=== PATIENT | female | born 1980 | race American Indian/Alaskan Native ===

== ENCOUNTER 2021-04-20 08:56 | Emergency (ER) | payer MEDICAID ==
[2021-04-20] MEDS ORDERED: NITROGLYCERIN 2% OINT 1 GM TP ONE (09:52)
[2021-04-20] MEDS ORDERED: ASPIRIN 325 MG TAB PO ONE (09:52)
--- NOTE | 2021-04-20 09:59 | Emergency Department Report ---
HPI - General Chief Complaint: Chest Pain Time Seen by Provider: 04/20/21 09:40 - HPI HPI: MSE 6 The patient is a 40-year-old female present with a chief complaint of chest pain. The patient states she developed substernal chest and mid back pressure a t 02: 00 this morning. Patient states there was associated shortness of breath but she denies nausea/vomiting or diaphoresis with the pain. Patient describes a pressure is constant in nature. Patient denies history of cough or fever. Patient states she is never had a stress test or cardiac catheterization. Patient currently gives her chest pressure score of 5/10 ED Past Medical Hx - Past Medical History Hx Asthma: Yes Additional medical history: Multiple sclerosis - Surgical History Past Surgical History?: No - Family History Family history: no significant - Social History Smoking Status: Never Smoker Substance Use Type: None (Denies illicit drug use), Alcohol (Occasional) - Medications Home Medications: Home Medications Medication Instructions Recorded Confirmed Last Taken Type Famotidine [Pepcid] 20 mg PO BID #30 tablet 04/20/21 Unknown Rx traMADoL [Ultram] 50 mg PO Q6HR PRN #14 tablet 04/20/21 Unknown Rx ED Review of Systems ROS: Stated complaint: CHEST/BACK PAIN Other details as noted in HPI Constitutional: denies: diaphoresis, fever Eyes: denies: eye pain ENT: denies: throat pain Respiratory: shortness of breath. denies: cough Cardiovascular: chest pain Endocrine: no symptoms reported Gastrointestinal: denies: nausea, vomiting Genitourinary: denies: dysuria Musculoskeletal: back pain Neurological: denies: headache Physical Exam - Physical Exam Vital Signs: Vital Signs 04/20/21 09:16 Temperature 98.4 F Pulse Rate 72 Respiratory 18 Rate Blood Pressure 138/93 [Right] O2 Sat by Pulse 97 Oximetry Physical Exam: GENERAL: The patient is well-developed well-nourished female sitting in chair not appearing to be in acute distress. [] HEENT: Normocephalic. Atraumatic. Extraocular motions are intact. Patient has moist mucous membranes. NECK: Supple. Trachea midline CHEST/LUNGS: Clear to auscultation. There is no respiratory distress noted. HEART/CARDIOVASCULAR: Regular. There is no tachycardia. There is no gallop rub or murmur. ABDOMEN: Abdomen is soft, nontender. Patient has normal bowel sounds. There is no abdominal distention. SKIN: There is no rash. There is no edema. There is no diaphoresis. NEURO: The patient is awake, alert, and oriented. The patient is cooperative. The patient has no focal neurologic deficits. The patient has normal speech. GCS 15 MUSCULOSKELETAL: There is no evidence of acute injury. ED Course Vital Signs 04/20/21 09:16 Temperature 98.4 F Pulse Rate 72 Respiratory 18 Rate Blood Pressure 138/93 [Right] O2 Sat by Pulse 97 Oximetry ED Medical Decision Making - Lab Data Result diagrams: 04/20/21 10:22 04/20/21 10:22 - EKG Data -: EKG Interpreted by Sc EKG shows normal: sinus rhythm Rate: normal - EKG Data When compared to previous EKG there are: previous EKG unavailable Interpretation: other (No ischemic changes seen) - Radiology Data Radiology results: report reviewed (CT chest), image reviewed (CT chest) [facility] [address] [place] [address] Cat Scan Report Signed Patient: LANETTE VIERA R#: [id number] : 1980 Acct:[id number] Age/Sex: 40 / F ADM Date: 04/20/21 Loc: ED Attending Dr: Ordering Physician: JAMILA FERNANDEZ MD Date of Service: 04/20/21 Procedure(s): CT angio chest Accession Number(s): [id number] cc: JAMILA FERNANDEZ MD CTA CHEST WITH CONTRAST INDICATION / CLINICAL INFORMATION: Chest and back pain. TECHNIQUE: Axial CT images were obtained through the chest after injection of 80 cc Omni 350 IV contrast. 3 plane MIP and/or 3D reconstructions were produced. All CT scans at this location are performed using CT dose reduction for ALARA by means of automated exposure control. COMPARISON: None available. FINDINGS: Mild respiratory motion artifact. PULMONARY EMBOLUS: None. THORACIC AORTA: No significant abnormality. HEART: No significant abnormality. CORONARY ARTERY CALCIFICATION: Absent -- None. MEDIASTINUM / RODRI: No significant abnormality. PLEURA: No pleural effusion. No pneumothorax. LUNGS: No acute air space or interstitial disease. Solid 4 mm left lower lobe pulmonary nodule image 53. ADDITIONAL FINDINGS: None. UPPER ABDOMEN: No acute findings. SKELETAL STRUCTURES: No significant osseous abnormality. IMPRESSION: 1. No CT evidence for pulmonary embolism. 2. No acute findings. 3. Single incidental pulmonary nodule(s) in the left lower lobe measuring 4 mm with solid characteristics. Recommendation according to Fleischner Society 2017 Guidelines: Low Risk Patient: No routine follow-up; High Risk Patient: Optional CT at 12 months. Signer Name: Oscar Kruger MD Signed: 04/20/2021 11:59 AM Workstation Name: [id number] Transcribed By: TL Dictated By: Oscar Kruger MD Electronically Authenticated By: Oscar Kruger MD Signed Date/Time: 04/20/21 115 DD/ 1156 TD/TT: Print Cancel - Differential Diagnosis ACS, pericarditis, GERD, PE, aortic dissection Critical care attestation.: If time is entered above; I have spent that time in minutes in the direct care of this critically ill patient, excluding procedure time. ED Disposition Clinical Impression: Chest pain Disposition: 01 HOME / SELF CARE / HOMELESS Is pt being admited?: No Does the pt Need Aspirin: No Condition: Stable Instructions: Nonspecific Chest Pain, Adult Additional Instructions: Return to the emergency department should you develop worsening symptoms, inability to tolerate food or liquids, high fever or any other concerns Prescriptions: Famotidine [Pepcid] 20 mg PO BID #30 tablet traMADoL [Ultram] 50 mg PO Q6HR PRN #14 tablet PRN Reason: Pain Heart Score - HEART Score History: Slightly suspicious EKG: Normal Age: < 45 Risk factors: No known risk factors Troponin: < normal limit HEART Score: 0 - EKG Read Time Time EKG Completed: 09:25 EKG Read Time: 09:28
[2021-04-20 10:25] VITALS: BP 130/56
[2021-04-20 10:47] LABS: Basophils % (Auto) 0.6 % (0.0-1.8); Eosinophils # (Auto) 0.1 K/mm3 (0.0-0.4); Eosinophils % (Auto) 1.3 % (0.0-4.3); Hematocrit 34.1 % (30.3-42.9); Hemoglobin 11.8 gm/dl (10.1-14.3); Lymphocytes # (Auto) 2.4 K/mm3 (1.2-5.4); Lymphocytes % (Auto) 31.6 % (13.4-35.0); Mean Corpuscular HGB Conc 35 % (30-34); Mean Corpuscular Volume 89 fl (79-97); Monocytes # (Auto) 0.4 K/mm3 (0.0-0.8); Monocytes % (Auto) 5.8 % (0.0-7.3); Platelet Count 219 K/mm3 (140-440); Red Blood Count 3.85 M/mm3 (3.65-5.03)
[2021-04-20 11:14] LABS: BUN/Creatinine Ratio 8; Blood Urea Nitrogen 10 mg/dL (7-17); Calcium 9.7 mg/dL (8.4-10.2); Creatine Kinase MB 1.8 ng/mL (0.0-4.0); Hemolysis Index 11
--- NOTE | 2021-04-20 12:03 | Cat Scan Report ---
CTA CHEST WITH CONTRAST INDICATION / CLINICAL INFORMATION: Chest and back pain. TECHNIQUE: Axial CT images were obtained through the chest after injection of 80 cc Omni 350 IV contr ast. 3 plane MIP and/or 3D reconstructions were produced. All CT scans at this location are performed using CT dose reduction for ALARA by means of automated exposure control. COMPARISON: None available. FINDINGS: Mild respiratory motion artifact. PULMONARY EMBOLUS: None. THORACIC AORTA: No significant abnormality. HEART: No significant abnormality. CORONARY ARTERY CALCIFICATION: Absent -- None. MEDIASTINUM / RODRI: No significant abnormality. PLEURA: No pleural effusion. No pneumothorax. LUNGS: No acute air space or interstitial disease. Solid 4 mm left lower lobe pulmonary nodule image 53. ADDITIONAL FINDINGS: None. UPPER ABDOMEN: No acute findings. SKELETAL STRUCTURES: No significant osseous abnormality. IMPRESSION: 1. No CT evidence for pulmonary embolism. 2. No acute findings. 3. Single incidental pulmonary nodule(s) in the left lower lobe measuring 4 mm with solid characteris tics. Recommendation according to Fleischner Society 2017 Guidelines: Low Risk Patient: No routine fo llow-up; High Risk Patient: Optional CT at 12 months. Signer Name: Oscar Kruger MD Signed: 04/20/2021 11:59 AM Workstation Name: [id number]
--- NOTE | 2021-04-24 17:10 | Electrocardiograph Report ---
[facility] Test Date: 2021-04-20 Test Time: 09:25:39 Pat Name: LANETTE VIERA Department: Room: Gender: F Director Of Vital Statistics: ROMARIO : 1980 Requested By: JAMILA FERNANDEZ Order Number: [id number] Reading MD: Marichuy Parker Measurements Intervals Mize Rate: 81 P: 69 CT: 162 QRS: 37 QRSD: 97 T: 55 QT: 368 QTc: 428 Interpretive Statements Sinus rhythm No previous ECG available for comparison Electronically Signed On 04-24-2021 17:10:07 EST by Marichuy Parker
== END 2021-04-20 16:02 | disposition home or self-care (01) ==
LOC: ED 08:56
DX: R07.9 Chest pain, unspecified (principal); J45.909 Unspecified asthma, uncomplicated
CPT/HCPCS: 36415; 71275; 80048; 82550; 82553; 83880; 84484; 84703; 85025; 93005; 93010; 99284; Q9967